=== PATIENT | female | born 1970 | race Caucasian/White ===

== ENCOUNTER 2020-10-09 15:54 | Emergency (ER) | payer OTHER ==
[~2020-10-09] VITALS: Ht 152.4 cm; Wt 50.0 kg
[2020-10-09] MEDS ORDERED: IV NORMAL SALINE 1,000ML 1,000 ML IV ONE (16:30)
[2020-10-09] MEDS ORDERED: MORPHINE SULFATE 4 MG/ML DISP.SYRIN. IV ONE ×2 (16:30→17:00)
[2020-10-09] MEDS ORDERED: ONDANSETRON PF 4 MG/2 ML VIAL. IVP ONE ×2 (16:30→18:45)
[2020-10-09] MEDS ORDERED: MORPHINE SULFATE 4 MG/ML DISP.SYRIN. ONE (16:31)
--- NOTE | 2020-10-09 16:41 | PHYS DOC ---
Past History Past Medical History: Other Additional Past Medical Histor: Crohns Past Surgical History: No Surgical History Alcohol Use: None General Adult EDM: Chief Complaint: BACK PAIN - NO INJURY HPI: HPI: Patient is a 50-year-old female presents with a chief complaint of bilateral lower back pain and left sided abdominal pain. Patient has associated nausea and vomiting. Onset of current symptoms last night and progressively getting worse.. Patient states similar episode 1 week ago but pain resolved. History of crohns. Denies abdominal surgery history. Review of Systems: Review of Systems: Constitutional: Denies fever or chills Eyes: Denies change in visual acuity HENT: Denies nasal congestion or sore throat Respiratory: Denies cough or shortness of breath Cardiovascular: Denies chest pain or edema GI: positive abdominal pain, nausea, vomiting, denies bloody stools or diarrhea : Denies dysuria Musculoskeletal: Denies back pain or joint pain Integument: Denies rash Neurologic: Denies headache, focal weakness or sensory changes Endocrine: Denies polyuria or polydipsia Lymphatic: Denies swollen glands Psychiatric: Denies depression or anxiety Current Medications: Current Meds: Current Medications Medications (Trade) Dose Ordered Sig/Syl Start Time Stop Time Status Last Admin Dose Admin Morphine Sulfate (Morphine 4mg Syringe) 4 mg STK-MED ONCE 10/09/20 16:31 10/09/20 16:32 DC Ondansetron HCl (Zofran) 4 mg 1X ONCE 10/09/20 16:30 10/09/20 16:32 DC Sodium Chloride 1,000 ml @ 1,000 mls/hr 1X ONCE 10/09/20 16:30 10/09/20 17:29 Allergies: Allergies: Allergies Coded Allergies Type Severity Reaction Last Updated Verified ibuprofen Adverse Reaction Mild 10/09/20 Yes Physical Exam: PE: Constitutional: Well developed, well nourished, mild acute distress, non-toxic appearance. [] HENT: Normocephalic, atraumatic, bilateral external ears normal, oropharynx moist, no oral exudates, nose normal. [] Eyes: PERRLA, EOMI, conjunctiva normal, no discharge. [] Neck: Normal range of motion, no tenderness, supple, no stridor. [] Cardiovascular:Heart rate regular rhythm, no murmur [] Lungs & Thorax: Bilateral breath sounds clear to auscultation [] Abdomen: distended, tender to palpation Skin: Warm, dry, no erythema, no rash. [] Back: No tenderness, no CVA tenderness. [] Extremities: No tenderness, no cyanosis, no clubbing, ROM intact, no edema. [] Neurologic: Alert and oriented X 3, normal motor function, normal sensory function, no focal deficits noted. [] Psychologic: Affect normal, judgement normal, mood normal. [] Current Patient Data: Labs: Laboratory Tests Test 10/09/20 16:31 POC Urine HCG, Qualitative hcg negative (Negative) Vital Signs: Vital Signs Date Time Temp Pulse Resp B/P (MAP) Pulse Ox O2 Delivery O2 Flow Rate FiO2 10/09/20 16:00 97.4 94 26 141/106 (118) 99 EKG: EKG: [] Radiology/Procedures: Radiology/Procedures: [] Impressions: FINDINGS: There is a moderate to large hiatal hernia containing a fluid-filled stomach. The remainder stomach is markedly distended with fluid and food debris. There is suggested twisting of the mesentery. There is also a small left diaphragmatic defects with underlying mesenteric stranding (best seen on coronal image 68 through 71/101. There are infiltrates in the right middle lobe. The heart size is normal. Unopacified liver, spleen and pancreas appear normal. The gallbladder is distended. Both adrenal glands and bilateral kidneys appear normal. Visualized appendix is normal. The urinary bladder is partially decompressed. The uterus is anteverted. No adnexal masses seen. Bones are normal. IMPRESSION: Moderate hiatal hernia containing fluid-filled stomach with marked fluid distention of the stomach with relative decompression of small bowel loops. A gastric outlet obstruction perhaps secondary to a gastric volvulus is suspected. Additional defect in the left hemidiaphragm also noted as outlined above. FOR INTERNAL CODING PURPOSES Heart Score: Risk Factors: Risk Factors: DM, Current or recent (<one month) smoker, HTN, HLP, family histo ry of CAD, obesity. Risk Scores: Score 0 - 3: 2.5% MACE over next 6 weeks - Discharge Home Score 4 - 6: 20.3% MACE over next 6 weeks - Admit for Clinical Observation Score 7 - 10: 72.7% MACE over next 6 weeks - Early Invasive Strategies Course & Med Decision Making: Course & Med Decision Making Pertinent Labs and Imaging studies reviewed. (See chart for details) [] Patient was evaluated for chief complaint. Work-up consisted of laboratory analysis and radiologic imaging. Results reviewed and discussed with patient. Treatment included IV fluids Zofran morphine and Dilaudid. Patient had minimal improvement with pain medications. CT imaging per radiologist gastric outlet obstruction suspect gastric volvulus. NG ordered and placed. Patient transferred to [facility] accepted by Dr. Ortega. Discussed patient with Dr Grossman. Abhijeet Disclaimer: Abhijeet Disclaimer: This electronic medical record was generated, in whole or in part, using a voice recognition dictation system. Departure Departure: Impression: Primary Impression: Gastric out let obstruction Additional Impression: Nausea and vomiting Disposition: 02 DC/TRF OTHER SHORT TERM HOS Admitting Physician: Other (Dr Ortiz [facility]) Condition: STABLE Referrals: HANDY VARELA MD (PCP) JERI LEWIS DO Oct 09, 2020 16:41
[2020-10-09 16:47] LABS: CALCIUM 9.9 mg/dL (8.5-10.1); CREATININE 0.8 mg/dL (0.6-1.0); GFR 76.6; POTASSIUM 3.3 mmol/L (3.5-5.1)
[2020-10-09 16:49] LABS: BASO # 0.1 x10^3/uL (0.0-0.2); BASO % 0 % (0-3); EOS % 0 % (0-3); HEMATOCRIT 42.2 % (36.0-47.0); HEMOGLOBIN 13.8 g/dL (12.0-15.5); LYMPH # 1.2 x10^3/uL (1.0-4.8); LYMPH % 7 % (24-48); MEAN CORPUSCULAR HEMOGLOBIN 27 pg (25-35); MEAN CORPUSCULAR HGB CONC 33 g/dL (31-37); MEAN CORPUSCULAR VOLUME 84 fL (79-100); MONO % 5 % (0-9); NEUT # 16.5 x10^3uL (1.8-7.7); NEUT % 88 % (31-73); PLATELET COUNT 316 x10^3/uL (140-400); RED BLOOD COUNT 5.05 x10^6/uL (3.50-5.40); RED CELL DISTRIBUTION WIDTH 15.2 % (11.5-14.5); WHITE BLOOD COUNT 18.8 x10^3/uL (4.0-11.0)
[2020-10-09 16:53] LABS: ALBUMIN 3.9 g/dL (3.4-5.0); ALBUMIN/GLOBULIN RATIO 0.8 (1.0-1.7); TOTAL BILIRUBIN 0.4 mg/dL (0.2-1.0); TOTAL PROTEIN 8.6 g/dL (6.4-8.2)
[2020-10-09 16:58] LABS: BILIRUBIN,URINE NEG (NEG); CLARITY,URINE CLOUDY; COLOR,URINE AMBER; GLUCOSE,URINE NEG (NEG); NITRITE,URINE NEG (NEG)
[2020-10-09 16:59] LABS: BACTERIA,URINE MANY /HPF (0-FEW); SQUAMOUS EPITHELIAL CELL,UR MANY /LPF
[2020-10-09] MEDS ORDERED: HYDROmorphone PF 1 MG/ML DISP.SYRIN IVP ONE ×2 (17:30→19:45)
--- NOTE | 2020-10-09 17:30 | RAD ---
Exam performed: CT abdomen and pelvis without contrast. EXAMINATION: CT abdomen and pelvis with contrast HISTORY: Severe bilateral flank pain. DATE OF SERVICE: 10/09/2020. : None available TECHNIQUE: Contiguous helical acquisitions are obtained through the abdomen and pelvis without IV con trast. Sagittal and coronal reformatted images are obtained and reviewed. FINDINGS: There is a moderate to large hiatal hernia containing a fluid-filled stomach. The remainder stomach is markedly distended with fluid and food debris. There is suggested twisting of the mesentery. There is also a small left diaphragmatic defects with underlying mesenteric stranding (best seen on maki l image 68 through 71/101. There are infiltrates in the right middle lobe. The heart size is normal. Unopacified liver, spleen a nd pancreas appear normal. The gallbladder is distended. Both adrenal glands and bilateral kidneys ap pear normal. Visualized appendix is normal. The urinary bladder is partially decompressed. The uterus is anteverted. No adnexal masses seen. Bones are normal. IMPRESSION: Moderate hiatal hernia containing fluid-filled stomach with marked fluid distention of the stomach wi th relative decompression of small bowel loops. A gastric outlet obstruction perhaps secondary to a g astric volvulus is suspected. Additional defect in the left hemidiaphragm also noted as outlined above. FOR INTERNAL CODING PURPOSES Critical result: Findings discussed with Dr Foote at 10/09/2020 5:18 PM. RESULT CODE: (C) Electronically signed by: Alondra Garrison MD (10/09/2020 5:27 PM) [facility]
[2020-10-09 17:39] LABS: % BANDS 2 % (0-9); % BASOS 1 % (0-3); % LYMPHS 10 % (24-48); % MONOS 4 % (0-10); % SEGS 83 % (35-66); PLT ESTIMATE ADEQUATE (ADEQUATE)
[2020-10-09 17:40] LABS: OVALOCYTES OCC; PLATELET CLUMP PRESENT; POLYCHROMASIA SLIGHT
[2020-10-09] MEDS ORDERED: LIDOCAINE 2% JELLY 10ML IN APPLICATOR. MM ONE (18:30)
[2020-10-09 18:55] VITALS: BP 160/89
--- NOTE | 2020-10-09 19:11 | RAD ---
Exam: Chest one view INDICATION: Post NG tube placement TECHNIQUE: Frontal view of the chest Comparisons: None FINDINGS: Enteric tube with tip in the left upper quadrant likely within stomach. Sidehole is noted at the leve l of the gastroesophageal junction. The cardiomediastinal silhouette and pulmonary vessels are within normal limits. The lung and pleural spaces are clear. Large paraesophageal hernia is noted. IMPRESSION: Enteric tube with tip likely in the stomach. Sidehole projects at the expected level of the gastroeso phageal junction. Recommend advancing 3 to 5 cm. Electronically signed by: Damon Boss MD (10/09/2020 7:09 PM) [id number]
== END 2020-10-09 20:53 | disposition short-term general hospital (02) ==
LOC: ER 15:54
DX: K31.1 Adult hypertrophic pyloric stenosis (principal); R11.2 Nausea with vomiting, unspecified; K50.90 Crohn's disease, unspecified, without complications; Z88.6 Allergy status to analgesic agent
CPT/HCPCS: 36415; 71045; 74176; 80053; 81001; 81025; 83690; 85007; 85025; 96361; 96374; 96375; 96376; 99285; J1170; J2270; J2405; J7030